=== PATIENT | female | born 1970 | race Two or more races ===

== ENCOUNTER 2016-03-28 10:36 | Emergency (ER) | payer MEDICAID ==
[~2016-03-28] VITALS: Ht 157.5 cm; Wt 74.8 kg
[~2016-03-28 10:36] MED LIST: ACET30TA PO; BUS10T PO; CITA20TA3 PO; IBUP800T24 PO; SUCR1TAB36 PO
[2016-03-28 11:06] VITALS: BP 108/57
== END 2016-03-28 11:34 | disposition home or self-care (01) ==
LOC: ER 10:45
DX: B86 Scabies (principal); F17.210 Nicotine dependence, cigarettes, uncomplicated; Z90.49 Acquired absence of other specified parts of digestive tract; Z88.6 Allergy status to analgesic agent

== ENCOUNTER 2016-08-10 23:17 | Emergency (ER) | payer MEDICAID ==
[~2016-08-10] VITALS: Ht 157.5 cm; Wt 74.8 kg
[2016-08-10] MEDS ORDERED: methylPREDNISolone SOD SUCC 125 MG/2 ML VL IV ONE (23:45)
[2016-08-10] MEDS ORDERED: diphenhdrAMINE HCL 50 MG/1 ML VL IV ONE (23:45)
[2016-08-10] MEDS ORDERED: EPINEPHrine HCL 1 MG/1 ML AMP SC ONE (23:45)
[2016-08-10 23:52] VITALS: BP 109/70
== END 2016-08-11 03:43 | disposition left against medical advice (07) ==
LOC: ER 23:17
DX: T78.40XA Allergy, unspecified, initial encounter (principal); X58.XXXA Exposure to other specified factors, initial encounter; Z53.21 Procedure and treatment not carried out due to patient leaving prior to being seen by health care provider
CPT/HCPCS: J0171; J1200; J2930

== ENCOUNTER 2017-01-10 20:32 | Emergency (ER) | payer MEDICAID ==
[~2017-01-10] VITALS: Ht 157.5 cm; Wt 72.6 kg
[2017-01-10 21:06] LABS: Urine Bilirubin Negative (Negative); Urine Blood Negative /uL (Negative); Urine Color Yellow (Yellow); Urine Glucose Normal (Normal); Urine Ketone Negative (Negative); Urine Nitrite Negative (Negative); Urine RBC 1 /hpf (0 - 4); Urine Squamous Epithelial Cell FEW /hpf (<5); Urine Urobilinogen Normal (Negative); Urine pH 5.5 (5.0-8.0)
[2017-01-10 21:42] LABS: Basophils # (auto) 0.1 uL; Basophils % (auto) 0.7 % (0.0-2.0); Eosinophils # (auto) 0.2 uL; Eosinophils % (auto) 3.3 % (0.0-7.0); Hematocrit 36.5 % (36.0-46.0); Hemoglobin 11.6 g/dL (12.2-16.2); Lymphocytes # (auto) 2.6 uL; Lymphocytes % (auto) 35.4 % (10.0-50.0); Mean Corpuscular Hemoglobin 27.3 pg (28.0-32.0); Mean Corpuscular Hgb Conc. 31.8 g/dL (32.0-36.0); Mean Corpuscular Volume 86.1 fL (80.0-100.0); Mean Platelet Volume 8.7 fL (6.9-10.8); Monocytes # (auto) 0.5 uL; Neutrophils % (auto) 53.6 % (37.0-80.0); Platelet Count (auto) 333 10^3/uL (140-450); Red Cell Distribution Width 16.1 % (11.8-14.3); White Blood Cell 7.4 10^3/uL (4.4-10.8)
[2017-01-10 22:02] LABS: BUN/Creatinine Ratio 17.2; Potassium 4.1 mmol/L (3.5-5.1)
[2017-01-10 22:04] LABS: Bilirubin, Total 0.1 mg/dL (0.2-1.0); Total Protein 8.4 g/dL (6.4-8.2)
[2017-01-10 23:14] VITALS: BP 100/56
[2017-01-10] MEDS ORDERED: IBUPROFEN 600 MG TAB PO ONE (23:45)
== END 2017-01-10 23:49 | disposition home or self-care (01) ==
LOC: ER 20:32
DX: K52.9 Noninfective gastroenteritis and colitis, unspecified (principal); M79.1 Myalgia; F17.210 Nicotine dependence, cigarettes, uncomplicated; E11.9 Type 2 diabetes mellitus without complications; Z90.49 Acquired absence of other specified parts of digestive tract; Z88.6 Allergy status to analgesic agent
CPT/HCPCS: 36415; 74176; 80053; 81001; 84702; 85025

== ENCOUNTER 2017-04-08 17:07 | Emergency (ER) | payer MEDICAID ==
[~2017-04-08] VITALS: Ht 175.3 cm; Wt 74.8 kg
[2017-04-08] MEDS ORDERED: SODIUM CHLORIDE 0.9% 1,000 ML IVB ONE (17:27)
[2017-04-08 18:02] LABS: Urine Bacteria FEW /hpf (None Seen); Urine Blood Negative /uL (Negative); Urine Mucus FEW (None Seen); Urine Specific Gravity 1.025 (1.001-1.035); Urine WBC 7 /hpf (0 - 5)
[2017-04-08 18:13] LABS: Amphetamine Screen, Urine NEGATIVE (NEGATIVE); Barbiturate Scree,Urine NEGATIVE (NEGATIVE); Benzodiazephine Screen, Urine NEGATIVE (NEGATIVE); Cannabinoid Screen, Urine NEGATIVE (NEGATIVE); Cocaine Screen, Urine NEGATIVE (NEGATIVE); Opiate Scree,Urine NEGATIVE (NEGATIVE); Phencyclidine Screen, Urine NEGATIVE (NEGATIVE)
[2017-04-08 18:59] LABS: Basophils # (auto) 0.1 uL; Eosinophils # (auto) 0.1 uL; Lymphocytes # (auto) 2.7 uL; Mean Corpuscular Hgb Conc. 31.6 g/dL (32.0-36.0); Monocytes # (auto) 0.5 uL; White Blood Cell 8.3 10^3/uL (4.4-10.8)
[2017-04-08 19:01] LABS: Basophils % (auto) 0.7 % (0.0-2.0); Eosinophils % (auto) 1.4 % (0.0-7.0); Hematocrit 34.3 % (36.0-46.0); Hemoglobin 10.8 g/dL (12.2-16.2); Lymphocytes % (auto) 32.3 % (10.0-50.0); Mean Corpuscular Volume 82.4 fL (80.0-100.0); Monocytes % (auto) 5.8 % (0.0-12.0); Neutrophils % (auto) 59.8 % (37.0-80.0); Nucleated Red Blood Cells % 0.1 %; Platelet Count (auto) 328 10^3/uL (140-450); Red Blood Cells 4.16 10^6/uL (4.0-5.20); Red Cell Distribution Width 15.9 % (11.8-14.3)
[2017-04-08 19:09] LABS: Acetaminophen < 2.0 ug/mL (10-30); Salicylate 1.9 mg/dL (2.8-20.0)
[2017-04-08 19:19] LABS: Albumin 3.9 g/dL (3.4-5.0); BUN/Creatinine Ratio 18.5; Bilirubin, Total 0.2 mg/dL (0.2-1.0); Calcium 8.1 mg/dL (8.5-10.1); Potassium 3.8 mmol/L (3.5-5.1); Total Protein 8.4 g/dL (6.4-8.2)
[2017-04-08] MEDS ORDERED: cefTRIAXone 1GM/10ml IVPUSH 10 ML IV ONE (19:30)
[2017-04-08] MEDS ORDERED: KETOROLAC TROMETH 30 MG/ML 1ML VIAL IV ONE (19:30)
[2017-04-08] MEDS: THIAMINE INJ 100 MG, MULTIPLE VITAMIN 10 ML, FOLIC ACID 1 MG, MAGNESIUM SULF SDV 50% 8 ... IV SCH ×5 (20:00)
[2017-04-08] MEDS ORDERED: PANTOPRAZOLE 40 MG/10 ML VIAL IV ONE (20:00)
[2017-04-08] MEDS ORDERED: MVI in SODIUM CHLORIDE 0.9% 1,010 ML ONE (20:02)
[2017-04-08] MEDS ORDERED: FAMOTIDINE (10MG/ML) 2ML VL IV ONE (21:15)
[2017-04-08] MEDS ORDERED: ACETAMINOPHEN 325 MG TAB PO ONE (23:00)
[2017-04-09] MEDS ORDERED: LORazepam 2MG/ML-1ML VIAL IV ONE (03:45)
[2017-04-09] MEDS ORDERED: FLUoxetine HCL 20 MG CAP PO ONE (10:00)
[2017-04-09] MEDS ORDERED: THIAMINE HCL 100 MG TAB PO ONE (10:00)
[2017-04-09] MEDS: FOLIC ACID 1 MG TAB PO SCH (10:06)
[2017-04-09] MEDS: THIAMINE HCL 100 MG TAB PO SCH (10:06)
[2017-04-09] MEDS: FLUoxetine HCL 20 MG CAP PO SCH (10:06)
[2017-04-09] MEDS ORDERED: NEOMYCIN-BACITRACIN-POLYM UNITDOSE PKG TOP OINT TOP ONE (19:45)
[2017-04-09] MEDS ORDERED: QUEtiapine FUMARATE 25 MG TAB PO SCH (22:00)
[2017-04-09] MEDS ORDERED: ACETAMINOPHEN 325 MG TAB PO ONE (22:08)
[2017-04-09] MEDS: QUEtiapine FUMARATE 25 MG TAB PO SCH (22:13)
[2017-04-09] MEDS ORDERED: ACETAMINOPHEN 325 MG TAB PO PRN (22:15)
[2017-04-10] MEDS: THIAMINE INJ 100 MG, MULTIPLE VITAMIN 10 ML, FOLIC ACID 1 MG, MAGNESIUM SULF SDV 50% 8 ... IV SCH ×5 (12:00)
[2017-04-10] MEDS: THIAMINE HCL 100 MG TAB PO SCH (12:15)
[2017-04-10] MEDS: FLUoxetine HCL 20 MG CAP PO SCH (12:15)
[2017-04-10] MEDS: FOLIC ACID 1 MG TAB PO SCH (12:15)
[2017-04-10] MEDS: QUEtiapine FUMARATE 25 MG TAB PO SCH (22:09)
[2017-04-11 07:38] VITALS: BP 124/62
[2017-04-11] MEDS: FOLIC ACID 1 MG TAB PO SCH (10:00)
[2017-04-11] MEDS: THIAMINE HCL 100 MG TAB PO SCH (10:00)
[2017-04-11] MEDS: FLUoxetine HCL 20 MG CAP PO SCH (10:00)
[2017-04-11] MEDS: QUEtiapine FUMARATE 25 MG TAB PO SCH (22:00)
== END 2017-04-12 10:42 | disposition home or self-care (01) ==
LOC: ER 17:07 → EDBD 17:07 → ER 04-12 10:42
DX: T14.91XA Suicide attempt, initial encounter (principal); F10.120 Alcohol abuse with intoxication, uncomplicated; N39.0 Urinary tract infection, site not specified; F31.9 Bipolar disorder, unspecified; F17.210 Nicotine dependence, cigarettes, uncomplicated; Z90.49 Acquired absence of other specified parts of digestive tract; X58.XXXA Exposure to other specified factors, initial encounter
CPT/HCPCS: 36415; 71045; 80053; 80307; 80320; 80329; 81001; 83735; 85025; 93005; 94761; 96365; 96366; 96375; 99285; C9113; J2060; J3411; J3475; J3490; J7030

== ENCOUNTER 2018-01-05 17:34 | Emergency (ER) | payer MEDICAID ==
[~2018-01-05] VITALS: Ht 157.5 cm; Wt 74.8 kg
[2018-01-05 17:47] VITALS: BP 117/68
== END 2018-01-05 20:05 | disposition left against medical advice (07) ==
LOC: ER 17:36
DX: F41.9 Anxiety disorder, unspecified (principal); Z53.21 Procedure and treatment not carried out due to patient leaving prior to being seen by health care provider

== ENCOUNTER 2018-07-26 12:07 | Emergency (ER) | payer MEDICAID ==
[~2018-07-26] VITALS: Ht 157.5 cm; Wt 77.1 kg
[2018-07-26] MEDS ORDERED: LORazepam 0.5 MG TAB PO ONE (13:30)
[2018-07-26 14:12] LABS: Basophils # (auto) 0 uL; Basophils % (auto) 0.6 % (0.0-2.0); Eosinophils # (auto) 0.2 uL; Eosinophils % (auto) 2.8 % (0.0-7.0); Hematocrit 34.7 % (36.0-46.0); Hemoglobin 11.2 g/dL (12.2-16.2); Lymphocytes # (auto) 2.5 uL; Mean Corpuscular Hemoglobin 28.9 pg (28.0-32.0); Mean Corpuscular Hgb Conc. 32.4 g/dL (32.0-36.0); Mean Corpuscular Volume 89.3 fL (80.0-100.0); Monocytes # (auto) 0.5 uL; Neutrophils # (auto) 2.8 uL; Neutrophils % (auto) 46.6 % (37.0-80.0); Platelet Count (auto) 279 10^3/uL (140-450); Red Blood Cells 3.89 10^6/uL (4.0-5.20); Red Cell Distribution Width 14.6 % (11.8-14.3); White Blood Cell 6.1 10^3/uL (4.4-10.8)
[2018-07-26 14:36] LABS: Albumin 3.6 g/dL (3.4-5.0); Anion Gap 7 (5-15); Blood Urea Nitrogen 11 mg/dL (7-18); Calcium 8.5 mg/dL (8.5-10.1); Carbon Dioxide 24 mmol/L (21-32); Chloride 108 mmol/L (98-107); Glucose 100 mg/dL (74-106); Sodium 139 mmol/L (136-145)
[2018-07-26 14:37] VITALS: BP 123/54
[2018-07-26 14:42] LABS: Alanine Aminotransferase 18 U/L (13-56); Alkaline Phosphatase 101 U/L (45-117); Aspartate Aminotransferase 12 U/L (15-37); BUN/Creatinine Ratio 18.3; Bilirubin, Total 0.2 mg/dL (0.2-1.0); GFR African American 137 mL/min; GFR Non-African American 113 mL/min; Total Protein 7.7 g/dL (6.4-8.2)
[2018-07-26 15:36] LABS: Urine Bacteria FEW /hpf (None Seen); Urine Blood Negative /uL (Negative); Urine Specific Gravity 1.005 (1.001-1.035); Urine WBC 1 /hpf (0 - 5)
== END 2018-07-26 16:28 | disposition home or self-care (01) ==
LOC: ER 12:07
DX: R07.89 Other chest pain (principal); F41.9 Anxiety disorder, unspecified; F17.210 Nicotine dependence, cigarettes, uncomplicated; Z88.5 Allergy status to narcotic agent; Z79.899 Other long term (current) drug therapy; Z90.49 Acquired absence of other specified parts of digestive tract
CPT/HCPCS: 36415; 80053; 81001; 84484; 85025; 93005

== ENCOUNTER 2018-12-08 11:01 | Emergency (ER) | payer MEDICAID ==
[~2018-12-08] VITALS: Ht 157.5 cm; Wt 80.7 kg
[2018-12-08 11:31] LABS: Eosinophils # (auto) 0.3 uL; Monocytes # (auto) 0.4 uL; Neutrophils # (auto) 2.6 uL; White Blood Cell 5.5 10^3/uL (4.4-10.8)
[2018-12-08 11:32] LABS: Basophils # (auto) 0 uL; Basophils % (auto) 0.8 % (0.0-2.0); Eosinophils % (auto) 5.2 % (0.0-7.0); Hematocrit 36.1 % (36.0-46.0); Hemoglobin 11.5 g/dL (12.2-16.2); Lymphocytes # (auto) 2.2 uL; Lymphocytes % (auto) 39.2 % (10.0-50.0); Mean Corpuscular Hemoglobin 26.7 pg (28.0-32.0); Mean Corpuscular Hgb Conc. 31.9 g/dL (32.0-36.0); Mean Corpuscular Volume 83.7 fL (80.0-100.0); Monocytes % (auto) 7.3 % (0.0-12.0); Neutrophils % (auto) 47.5 % (37.0-80.0); Platelet Count (auto) 283 10^3/uL (140-450); Red Blood Cells 4.31 10^6/uL (4.0-5.20); Red Cell Distribution Width 16.9 % (11.8-14.3)
[2018-12-08 11:44] LABS: Urine Bacteria FEW /hpf (None Seen); Urine Blood Negative /uL (Negative); Urine Mucus FEW (None Seen); Urine WBC 26 /hpf (0 - 5)
[2018-12-08 11:50] LABS: Albumin 3.7 g/dL (3.4-5.0); Calcium 8.8 mg/dL (8.5-10.1)
[2018-12-08 11:53] LABS: Bilirubin, Total 0.3 mg/dL (0.2-1.0)
[2018-12-08] MEDS ORDERED: SODIUM CHLORIDE 0.9% 500 ML IVB ONE (16:40)
[2018-12-08] MEDS ORDERED: SODIUM CHLORIDE 0.9% 1,000 ML IV ONE (16:40)
[2018-12-08] MEDS ORDERED: PROMETHAZINE HCL 25 MG/ML 1ML IV PRN (16:45)
[2018-12-08] MEDS ORDERED: KETOROLAC TROMETH 30 MG/ML 1ML VIAL IV ONE (16:45)
[2018-12-08] MEDS ORDERED: cefTRIAXone 1GM/50ML D5W 50 ML IV ONE (16:45)
[2018-12-08 18:45] VITALS: BP 106/50
== END 2018-12-08 19:05 | disposition home or self-care (01) ==
LOC: ER 11:07
DX: N39.0 Urinary tract infection, site not specified (principal); M46.1 Sacroiliitis, not elsewhere classified; F17.210 Nicotine dependence, cigarettes, uncomplicated; Z90.49 Acquired absence of other specified parts of digestive tract; Z88.5 Allergy status to narcotic agent; Z79.1 Long term (current) use of non-steroidal anti-inflammatories (NSAID); Z79.899 Other long term (current) drug therapy
CPT/HCPCS: 36415; 74176; 80053; 81001; 85025; 96361; 96365; 99284; J0696; J1885; J7030; J7040

== ENCOUNTER 2019-02-25 14:38 | Emergency (ER) | payer MEDICAID ==
[~2019-02-25] VITALS: Ht 157.5 cm; Wt 76.2 kg
[2019-02-25 15:01] VITALS: BP 125/73
[2019-02-25 15:42] LABS: Basophils # (auto) 0 uL; Basophils % (auto) 0.5 % (0.0-2.0); Eosinophils # (auto) 0.3 uL; Eosinophils % (auto) 5.2 % (0.0-7.0); Hematocrit 36.7 % (36.0-46.0); Hemoglobin 11.7 g/dL (12.2-16.2); Lymphocytes # (auto) 2.3 uL; Lymphocytes % (auto) 40.1 % (10.0-50.0); Mean Corpuscular Hemoglobin 28.4 pg (28.0-32.0); Mean Corpuscular Volume 88.7 fL (80.0-100.0); Monocytes # (auto) 0.4 uL; Monocytes % (auto) 6.8 % (0.0-12.0); Neutrophils # (auto) 2.7 uL; Neutrophils % (auto) 47.4 % (37.0-80.0); Nucleated Red Blood Cells % 0.1 %; Platelet Count (auto) 254 10^3/uL (140-450); Red Blood Cells 4.14 10^6/uL (4.0-5.20); Red Cell Distribution Width 17.8 % (11.8-14.3); White Blood Cell 5.7 10^3/uL (4.4-10.8)
[2019-02-25 16:02] LABS: Alanine Aminotransferase 21 U/L (13-56); Albumin 3.6 g/dL (3.4-5.0); Anion Gap 7 (5-15); Aspartate Aminotransferase 21 U/L (15-37); Blood Urea Nitrogen 12 mg/dL (7-18); Calcium 8.6 mg/dL (8.5-10.1); Carbon Dioxide 26 mmol/L (21-32); Chloride 107 mmol/L (98-107); GFR African American 136 mL/min; GFR Non-African American 112 mL/min; Glucose 87 mg/dL (74-106); Potassium 4.2 mmol/L (3.5-5.1); Sodium 140 mmol/L (136-145)
[2019-02-25 16:07] LABS: Alkaline Phosphatase 117 U/L (45-117); Bilirubin, Total 0.2 mg/dL (0.2-1.0); Total Protein 8.2 g/dL (6.4-8.2)
== END 2019-02-25 18:34 | disposition home or self-care (01) ==
LOC: ER 14:58
DX: R07.89 Other chest pain (principal); M54.2 Cervicalgia; M79.641 Pain in right hand; E11.9 Type 2 diabetes mellitus without complications; E07.9 Disorder of thyroid, unspecified; Z88.5 Allergy status to narcotic agent
CPT/HCPCS: 36415; 80053; 84484; 85025; 93005

== ENCOUNTER 2019-09-02 10:51 | Emergency (ER) | payer MEDICAID ==
[~2019-09-02] VITALS: Ht 157.5 cm; Wt 76.7 kg
[2019-09-02 11:37] LABS: Basophils # (auto) 0 10 ^3/uL (0-0.2); Hemoglobin 10.7 g/dL (12.2-16.2); Monocytes # (auto) 0.3 10 ^3/uL (0-1.3); Neutrophils # (auto) 2.8 10 ^3/uL (1.6-8.6)
[2019-09-02 11:39] LABS: Basophils % (auto) 0.9 % (0.0-2.0); Eosinophils # (auto) 0.3 10 ^3/uL (0-0.8); Eosinophils % (auto) 6.7 % (0.0-7.0); Hematocrit 34.1 % (36.0-46.0); Lymphocytes # (auto) 1.5 10 ^3/uL (0.4-5.4); Lymphocytes % (auto) 30.5 % (10.0-50.0); Mean Corpuscular Hgb Conc. 31.3 g/dL (32.0-36.0); Mean Corpuscular Volume 83.1 fL (80.0-100.0); Monocytes % (auto) 5.8 % (0.0-12.0); Neutrophils % (auto) 56.1 % (37.0-80.0); Platelet Count (auto) 296 10^3/uL (140-450); Red Cell Distribution Width 15.9 % (11.8-14.3)
[2019-09-02 11:46] LABS: Albumin 3.6 g/dL (3.4-5.0); Anion Gap 7 (5-15); Blood Urea Nitrogen 13 mg/dL (7-18); Calcium 8.6 mg/dL (8.5-10.1); Carbon Dioxide 24 mmol/L (21-32); Chloride 107 mmol/L (98-107); Glucose 107 mg/dL (74-106); Potassium 3.9 mmol/L (3.5-5.1); Sodium 138 mmol/L (136-145)
[2019-09-02 11:54] LABS: Alanine Aminotransferase 28 U/L (13-56); Alkaline Phosphatase 115 U/L (45-117); Aspartate Aminotransferase 18 U/L (15-37); BUN/Creatinine Ratio 19.1; Bilirubin, Total 0.3 mg/dL (0.2-1.0); GFR African American 118 mL/min; GFR Non-African American 97 mL/min; Total Protein 7.8 g/dL (6.4-8.2)
[2019-09-02] MEDS ORDERED: KETOROLAC TROMETH 30 MG/ML 1ML VIAL IV ONE (12:00)
[2019-09-02 12:02] LABS: Urine Bacteria FEW /hpf (None Seen); Urine Blood Negative /uL (Negative); Urine Specific Gravity 1.009 (1.001-1.035); Urine WBC 12 /hpf (0 - 5)
[2019-09-02 12:44] VITALS: BP 101/50
== END 2019-09-02 12:52 | disposition home or self-care (01) ==
LOC: ER 10:51
DX: S43.421A Sprain of right rotator cuff capsule, initial encounter (principal); R07.89 Other chest pain; R55 Syncope and collapse; R11.2 Nausea with vomiting, unspecified; Z88.6 Allergy status to analgesic agent; Z88.8 Allergy status to other drugs, medicaments and biological substances; Z90.49 Acquired absence of other specified parts of digestive tract; X58.XXXA Exposure to other specified factors, initial encounter; Y93.89 Activity, other specified; Y92.89 Other specified places as the place of occurrence of the external cause; Y99.8 Other external cause status
CPT/HCPCS: 36415; 71046; 73030; 80053; 81001; 84484; 85025; 93005; 96374; 99285; J1885

== ENCOUNTER → 2019-09-23 | Emergency (ER) | payer MEDICAID ==
[~2019-09-23] VITALS: Ht 157.5 cm; Wt 81.6 kg
[~2019-09-23] MED LIST changes: +ACETAMINOPHEN 325 MG TAB PO ONE; +SODIUM CHLORIDE 0.9% 1,000 ML IV ONE; +SODIUM CHLORIDE 0.9% 1,000 ML IVB ONE; +THIAMINE 100mg/ml INJ (200mg/2ml VIAL) IV ONE
[2019-09-23 15:50] LABS: Urine Bacteria MANY /hpf (None Seen); Urine Blood Negative /uL (Negative); Urine Mucus FEW (None Seen); Urine Specific Gravity 1.008 (1.001-1.035); Urine WBC 9 /hpf (0 - 5)
[2019-09-23 15:53] LABS: Amphetamine Screen, Urine NEGATIVE (NEGATIVE); Barbiturate Scree,Urine NEGATIVE (NEGATIVE); Benzodiazephine Screen, Urine NEGATIVE (NEGATIVE); Cannabinoid Screen, Urine NEGATIVE (NEGATIVE); Cocaine Screen, Urine NEGATIVE (NEGATIVE); Opiate Scree,Urine NEGATIVE (NEGATIVE); Phencyclidine Screen, Urine NEGATIVE (NEGATIVE)
[2019-09-23 16:56] LABS: Basophils # (auto) 0 10 ^3/uL (0-0.2); Eosinophils # (auto) 0.1 10 ^3/uL (0-0.8); Monocytes # (auto) 0.3 10 ^3/uL (0-1.3); Neutrophils # (auto) 4.8 10 ^3/uL (1.6-8.6); Red Cell Distribution Width 17.1 % (11.8-14.3)
[2019-09-23 16:58] LABS: Basophils % (auto) 0.6 % (0.0-2.0); Eosinophils % (auto) 1.4 % (0.0-7.0); Hematocrit 36.3 % (36.0-46.0); Hemoglobin 11.2 g/dL (12.2-16.2); Lymphocytes % (auto) 27.7 % (10.0-50.0); Mean Corpuscular Hemoglobin 25.8 pg (28.0-32.0); Mean Corpuscular Hgb Conc. 30.9 g/dL (32.0-36.0); Mean Corpuscular Volume 83.5 fL (80.0-100.0); Monocytes % (auto) 4.1 % (0.0-12.0); Neutrophils % (auto) 66.2 % (37.0-80.0); Platelet Count (auto) 382 10^3/uL (140-450); Red Blood Cells 4.35 10^6/uL (4.0-5.20); White Blood Cell 7.2 10^3/uL (4.4-10.8)
[2019-09-23 17:15] LABS: Albumin 3.7 g/dL (3.4-5.0); Calcium 8.8 mg/dL (8.5-10.1); Potassium 3.6 mmol/L (3.5-5.1)
[2019-09-23 17:19] LABS: BUN/Creatinine Ratio 16.7; Bilirubin, Total 0.2 mg/dL (0.2-1.0); Salicylate 4.3 mg/dL (2.8-20.0); Total Protein 8.3 g/dL (6.4-8.2)
[2019-09-23 17:24] LABS: Acetaminophen < 2.0 ug/mL (10-30)
[2019-09-24 08:52] VITALS: BP 114/66
== END | disposition home or self-care (01) ==
LOC: EDBD 13:50 → EDUNIT# 13:50 → ER 13:50
DX: R45.851 Suicidal ideations (principal); F41.9 Anxiety disorder, unspecified; F19.10 Other psychoactive substance abuse, uncomplicated; Z72.89 Other problems related to lifestyle
CPT/HCPCS: 36415; 80053; 80307; 80320; 80329; 81001; 85025; 96374

== ENCOUNTER 2019-10-01 10:27 | Emergency (ER) | payer MEDICAID ==
[~2019-10-01] VITALS: Ht 157.5 cm; Wt 74.8 kg
[~2019-10-01 10:27] MED LIST changes: -ACETAMINOPHEN 325 MG TAB PO ONE; -SODIUM CHLORIDE 0.9% 1,000 ML IV ONE; -SODIUM CHLORIDE 0.9% 1,000 ML IVB ONE; -THIAMINE 100mg/ml INJ (200mg/2ml VIAL) IV ONE
[2019-10-01 10:43] VITALS: BP 116/85
[2019-10-01 11:44] LABS: Eosinophils # (auto) 0.3 10 ^3/uL (0-0.8); Hemoglobin 11.3 g/dL (12.2-16.2); Lymphocytes # (auto) 2.1 10 ^3/uL (0.4-5.4); Monocytes # (auto) 0.4 10 ^3/uL (0-1.3); Neutrophils # (auto) 3.8 10 ^3/uL (1.6-8.6); Neutrophils % (auto) 57.5 % (37.0-80.0); Nucleated Red Blood Cells % 0.1 %; White Blood Cell 6.6 10^3/uL (4.4-10.8)
[2019-10-01 11:46] LABS: Basophils # (auto) 0 10 ^3/uL (0-0.2); Basophils % (auto) 0.7 % (0.0-2.0); Eosinophils % (auto) 4.3 % (0.0-7.0); Hematocrit 36.8 % (36.0-46.0); Lymphocytes % (auto) 31.5 % (10.0-50.0); Mean Corpuscular Hemoglobin 26.2 pg (28.0-32.0); Mean Corpuscular Hgb Conc. 30.7 g/dL (32.0-36.0); Mean Corpuscular Volume 85.2 fL (80.0-100.0); Platelet Count (auto) 289 10^3/uL (140-450); Red Blood Cells 4.32 10^6/uL (4.0-5.20); Red Cell Distribution Width 17.3 % (11.8-14.3)
[2019-10-01 12:01] LABS: Chloride 103 mmol/L (98-107); Sodium 134 mmol/L (136-145)
[2019-10-01 12:12] LABS: Alanine Aminotransferase 19 U/L (13-56); Albumin 3.6 g/dL (3.4-5.0); Alkaline Phosphatase 98 U/L (45-117); Anion Gap 5 (5-15); Aspartate Aminotransferase 17 U/L (15-37); Bilirubin, Total 0.2 mg/dL (0.2-1.0); Blood Urea Nitrogen 11 mg/dL (7-18); Calcium 8.8 mg/dL (8.5-10.1); Carbon Dioxide 26 mmol/L (21-32); GFR African American 134 mL/min; GFR Non-African American 110 mL/min; Glucose 94 mg/dL (74-106); Total Protein 8.3 g/dL (6.4-8.2)
== END 2019-10-01 13:27 | disposition left against medical advice (07) ==
LOC: EDBD 10:27 → ER 10:27
DX: S09.90XA Unspecified injury of head, initial encounter (principal); R55 Syncope and collapse; M54.2 Cervicalgia; X58.XXXA Exposure to other specified factors, initial encounter; Y93.89 Activity, other specified; Y92.89 Other specified places as the place of occurrence of the external cause; Y99.8 Other external cause status
CPT/HCPCS: 36415; 80053; 84484; 85025; 93005

== ENCOUNTER 2019-12-31 12:24 | Emergency (ER) | payer MEDICAID ==
[~2019-12-31] VITALS: Ht 157.5 cm; Wt 88.5 kg
[2019-12-31 12:45] VITALS: BP 100/53
== END 2019-12-31 14:58 | disposition home or self-care (01) ==
LOC: ER 12:24
DX: J20.8 Acute bronchitis due to other specified organisms (principal); Z20.828 Contact with and (suspected) exposure to other viral communicable diseases
CPT/HCPCS: 36415; 71045; 87426

== ENCOUNTER 2021-02-26 10:00 | Emergency (ER) | payer MEDICAID ==
[~2021-02-26] VITALS: Ht 157.5 cm; Wt 88.5 kg
[~2021-02-26 10:00] MED LIST changes: -IBUP800T24 PO; +IBUP800T27 PO
[2021-02-26] MEDS ORDERED: HYDROcodone-ACET 5/325MG TAB ONE (10:04)
[2021-02-26] MEDS ORDERED: HYDROcodone-ACET 5/325MG TAB PO ONE (10:15)
[2021-02-26 11:23] LABS: Basophils # (auto) 0.1 10 ^3/uL (0-0.2); Eosinophils # (auto) 0.2 10 ^3/uL (0-0.8); Eosinophils % (auto) 2.5 % (0.0-7.0); Hematocrit 41.4 % (36.0-46.0); Hemoglobin 13.3 g/dL (12.2-16.2); Lymphocytes # (auto) 2.1 10 ^3/uL (0.4-5.4); Lymphocytes % (auto) 31.1 % (10.0-50.0); Mean Corpuscular Hemoglobin 28.9 pg (28.0-32.0); Mean Corpuscular Hgb Conc. 32.1 g/dL (32.0-36.0); Mean Corpuscular Volume 90.2 fL (80.0-100.0); Monocytes # (auto) 0.4 10 ^3/uL (0-1.3); Monocytes % (auto) 5.9 % (0.0-12.0); Neutrophils # (auto) 4.1 10 ^3/uL (1.6-8.6); Neutrophils % (auto) 59.5 % (37.0-80.0); Nucleated Red Blood Cells % 0.1 %; Red Blood Cells 4.59 10^6/uL (4.0-5.20); Red Cell Distribution Width 17.5 % (11.8-14.3); White Blood Cell 6.8 10^3/uL (4.4-10.8)
[2021-02-26 11:32] LABS: Albumin 3.8 g/dL (3.4-5.0); Calcium 8.6 mg/dL (8.5-10.1); Potassium 4.6 mmol/L (3.5-5.1)
[2021-02-26 11:38] LABS: BUN/Creatinine Ratio 16.1; Bilirubin, Total 0.3 mg/dL (0.2-1.0); Total Protein 8.1 g/dL (6.4-8.2)
[2021-02-26 14:11] VITALS: BP 100/60
== END 2021-02-26 14:17 | disposition home or self-care (01) ==
LOC: ER 10:00
DX: R10.2 Pelvic and perineal pain (principal); E11.9 Type 2 diabetes mellitus without complications; E03.9 Hypothyroidism, unspecified; F17.210 Nicotine dependence, cigarettes, uncomplicated; Z90.49 Acquired absence of other specified parts of digestive tract; Z79.1 Long term (current) use of non-steroidal anti-inflammatories (NSAID); Z79.899 Other long term (current) drug therapy; Z88.5 Allergy status to narcotic agent
CPT/HCPCS: 36415; 74176; 80053; 85025

== ENCOUNTER 2021-08-28 11:09 | Emergency (ER) | payer MEDICAID ==
[~2021-08-28] VITALS: Ht 157.5 cm; Wt 86.2 kg
[2021-08-28 12:11] LABS: Basophils # (auto) 0.3 10 ^3/uL (0-0.2); Basophils % (auto) 4.6 % (0.0-2.0); Eosinophils # (auto) 0.2 10 ^3/uL (0-0.8); Eosinophils % (auto) 3.8 % (0.0-7.0); Hematocrit 36.6 % (36.0-46.0); Hemoglobin 11.9 g/dL (12.2-16.2); Lymphocytes # (auto) 1.6 10 ^3/uL (0.4-5.4); Mean Corpuscular Hemoglobin 29.1 pg (28.0-32.0); Mean Corpuscular Hgb Conc. 32.4 g/dL (32.0-36.0); Monocytes # (auto) 0.3 10 ^3/uL (0-1.3); Monocytes % (auto) 5.7 % (0.0-12.0); Neutrophils % (auto) 55.9 % (37.0-80.0); Nucleated Red Blood Cells % 0.1 %; Red Blood Cells 4.07 10^6/uL (4.0-5.20); Red Cell Distribution Width 15.8 % (11.8-14.3); White Blood Cell 5.4 10^3/uL (4.4-10.8)
[2021-08-28 12:28] LABS: Albumin 3.8 g/dL (3.4-5.0); Calcium 9.1 mg/dL (8.5-10.1); Potassium 4.5 mmol/L (3.5-5.1)
[2021-08-28 12:31] LABS: BUN/Creatinine Ratio 17.5; Bilirubin, Total 0.3 mg/dL (0.2-1.0); Total Protein 8.1 g/dL (6.4-8.2)
[2021-08-28] MEDS ORDERED: ONDANSETRON ODT 4 MG TAB PO ONE (12:45)
[2021-08-28 13:02] LABS: Urine Bacteria FEW /hpf (None Seen); Urine Blood Negative /uL (Negative); Urine Specific Gravity 1.016 (1.001-1.035); Urine WBC 90 /hpf (0 - 5)
[2021-08-28] MEDS ORDERED: ONDA-144 PO (14:20)
[2021-08-28] MEDS ORDERED: DOCU-94 PO (14:20)
[2021-08-28] MEDS ORDERED: LEVO500T31 PO (14:20)
[2021-08-28 14:36] VITALS: BP 120/67
== END 2021-08-28 14:35 | disposition home or self-care (01) ==
LOC: ER 11:09
DX: N39.0 Urinary tract infection, site not specified (principal); K59.00 Constipation, unspecified; T85.898A Other specified complication of other internal prosthetic devices, implants and grafts, initial encounter; E11.9 Type 2 diabetes mellitus without complications; F17.210 Nicotine dependence, cigarettes, uncomplicated; Z98.51 Tubal ligation status; Z90.49 Acquired absence of other specified parts of digestive tract
CPT/HCPCS: 36415; 74176; 80053; 81001; 83690; 84484; 85025; 93005; 99285; Q0162

== ENCOUNTER 2021-10-16 21:51 | Emergency (ER) | payer MEDICAID ==
[~2021-10-16] VITALS: Ht 162.6 cm; Wt 82.0 kg
[~2021-10-16 21:51] MED LIST changes: +DOCU-94 PO; +LEVO500T31 PO; +ONDA-144 PO
[2021-10-17] MEDS ORDERED: MORPHINE SULFATE 4 MG/ML SYR/VIAL IV ONE (02:15)
[2021-10-17] MEDS ORDERED: MORPHINE SULFATE 4 MG/ML SYR/VIAL IM ONE ×2 (02:30→03:15)
[2021-10-17 04:09] VITALS: BP 114/62
== END 2021-10-17 04:19 | disposition home or self-care (01) ==
LOC: EDBD 21:51 → ER 21:51
DX: S82.251A Displaced comminuted fracture of shaft of right tibia, initial encounter for closed fracture (principal); E11.9 Type 2 diabetes mellitus without complications; E03.9 Hypothyroidism, unspecified; F17.210 Nicotine dependence, cigarettes, uncomplicated; Z90.49 Acquired absence of other specified parts of digestive tract; Z79.1 Long term (current) use of non-steroidal anti-inflammatories (NSAID); Z79.2 Long term (current) use of antibiotics; Z79.899 Other long term (current) drug therapy; Z88.5 Allergy status to narcotic agent; Z91.013 Allergy to seafood; V89.2XXA Person injured in unspecified motor-vehicle accident, traffic, initial encounter; Y93.89 Activity, other specified; Y92.89 Other specified places as the place of occurrence of the external cause; Y99.8 Other external cause status
CPT/HCPCS: 29515; 73600; 96372; 99285; J2270

== ENCOUNTER 2021-10-17 17:45 | Emergency (ER) | payer MEDICAID ==
[~2021-10-17] VITALS: Ht 172.7 cm; Wt 72.3 kg
[2021-10-17] MEDS ORDERED: MORPHINE SULFATE 4 MG/ML SYR/VIAL IV ONE (19:00)
[2021-10-17 19:22] LABS: Basophils # (auto) 0 10 ^3/uL (0-0.2); Basophils % (auto) 0.4 % (0.0-2.0); Eosinophils # (auto) 0.1 10 ^3/uL (0-0.8); Hemoglobin 9.9 g/dL (12.2-16.2); Monocytes # (auto) 0.5 10 ^3/uL (0-1.3)
[2021-10-17 19:24] LABS: Hematocrit 31.5 % (36.0-46.0); Lymphocytes # (auto) 1.5 10 ^3/uL (0.4-5.4); Lymphocytes % (auto) 21.9 % (10.0-50.0); Mean Corpuscular Hgb Conc. 31.6 g/dL (32.0-36.0); Mean Corpuscular Volume 85.5 fL (80.0-100.0); Monocytes % (auto) 6.6 % (0.0-12.0); Neutrophils # (auto) 4.9 10 ^3/uL (1.6-8.6); Neutrophils % (auto) 70.1 % (37.0-80.0); Red Blood Cells 3.68 10^6/uL (4.0-5.20); Red Cell Distribution Width 15.4 % (11.8-14.3)
[2021-10-17 19:51] LABS: Alanine Aminotransferase 63 U/L (13-56); Albumin 3.3 g/dL (3.4-5.0); Anion Gap 9 (5-15); Aspartate Aminotransferase 101 U/L (15-37); BUN/Creatinine Ratio 14.6; Blood Alcohol < 3.0 mg/dL (0-5); Blood Urea Nitrogen 7 mg/dL (7-18); Calcium 7.9 mg/dL (8.5-10.1); Carbon Dioxide 25 mmol/L (21-32); Chloride 103 mmol/L (98-107); GFR African American 175 mL/min; GFR Non-African American 144 mL/min; Glucose 122 mg/dL (74-106); Magnesium 1.7 mg/dL (1.6-2.6); Potassium 3.7 mmol/L (3.5-5.1); Salicylate 2.3 mg/dL (2.8-20.0); Sodium 137 mmol/L (136-145)
[2021-10-17 19:54] LABS: Alkaline Phosphatase 212 U/L (45-117); Bilirubin, Total 0.5 mg/dL (0.2-1.0)
[2021-10-17 19:55] LABS: Acetaminophen < 2.0 ug/mL (10-30)
[2021-10-17 20:18] LABS: Urine Bacteria FEW /hpf (None Seen); Urine Blood Negative /uL (Negative); Urine Specific Gravity 1.013 (1.001-1.035); Urine WBC 1 /hpf (0 - 5)
[2021-10-17 20:33] LABS: Alcohol, Urine < 3.0 mg/dL (0-10); Amphetamine Screen, Urine NEGATIVE (NEGATIVE); Barbiturate Scree,Urine NEGATIVE (NEGATIVE); Benzodiazephine Screen, Urine NEGATIVE (NEGATIVE); Cannabinoid Screen, Urine NEGATIVE (NEGATIVE); Cocaine Screen, Urine NEGATIVE (NEGATIVE); Opiate Scree,Urine NEGATIVE (NEGATIVE); Phencyclidine Screen, Urine NEGATIVE (NEGATIVE)
[2021-10-18] MEDS ORDERED: MORPHINE SULFATE 4 MG/ML SYR/VIAL IV ONE (01:00)
[2021-10-18] MEDS ORDERED: IBUPROFEN 800 MG TAB PO ONE (17:00)
[2021-10-18] MEDS ORDERED: MORPHINE SULFATE INJ 2 MG/ml SYRG IM ONE (22:15)
[2021-10-18 22:52] VITALS: BP 102/70
== END 2021-10-19 10:35 | disposition left against medical advice (07) ==
LOC: ER 17:45 → EDBD 17:45 → ER 10-19 10:06
DX: S82.301D Unspecified fracture of lower end of right tibia, subsequent encounter for closed fracture with routine healing (principal); R45.851 Suicidal ideations; F10.10 Alcohol abuse, uncomplicated; F41.9 Anxiety disorder, unspecified; F32.9 Major depressive disorder, single episode, unspecified; E11.9 Type 2 diabetes mellitus without complications; F17.210 Nicotine dependence, cigarettes, uncomplicated; Z20.822 Contact with and (suspected) exposure to COVID-19; Z88.5 Allergy status to narcotic agent; Y90.9 Presence of alcohol in blood, level not specified; V89.2XXD Person injured in unspecified motor-vehicle accident, traffic, subsequent encounter
CPT/HCPCS: 29125; 36415; 80053; 80307; 80320; 80329; 81001; 81025; 83735; 85025; 87426; 93005; 96372; 96374; 96376; 99285; J2270

== ENCOUNTER 2023-03-27 10:42 | Emergency (ER) | payer MEDICAID ==
[~2023-03-27] VITALS: Ht 157.5 cm; Wt 88.1 kg
[~2023-03-27 10:42] MED LIST changes: +IBUP-1456 PO; -IBUP800T27 PO
[2023-03-27] MEDS ORDERED: LORazepam 2MG/ML-1ML VIAL IV ONE (10:45)
[2023-03-27] MEDS ORDERED: HYDROcodone-ACET 5/325MG TAB PO ONE (16:00)
[2023-03-28] MEDS ORDERED: HYDROcodone-ACET 5/325MG TAB PO ONE ×2 (00:30→16:00)
[2023-03-28] MEDS ORDERED: KETOROLAC TROMETH 60MG/2ML VIAL IM ONE (03:30)
[2023-03-28 06:25] VITALS: PULSE 90; RESP 20; O2SAT 99
[2023-03-28 07:20] VITALS: PULSE 75; RESP 16; O2SAT 96
[2023-03-28] MEDS ORDERED: ACETAMINOPHEN 325 MG TAB PO ONE (10:45)
[2023-03-28 11:28] LABS: Amphetamine Screen, Urine Neg (NEGATIVE); Barbiturate Scree,Urine Neg (NEGATIVE); Benzodiazephine Screen, Urine Pos (NEGATIVE); Cocaine Screen, Urine Pos (NEGATIVE); Opiate Scree,Urine Pos (NEGATIVE); Phencyclidine Screen, Urine Neg (NEGATIVE)
[2023-03-28 11:29] LABS: Cannabinoid Screen, Urine Neg (NEGATIVE)
[2023-03-28] MEDS ORDERED: hydrOXYzine 25 MG TAB or CAP PO PRN (14:15)
[2023-03-28 16:31] LABS: Urine Bacteria MANY /hpf (None Seen); Urine Blood TRACE /uL (Negative); Urine Clarity HAZY (Clear); Urine Color Yellow (Yellow); Urine Hyaline Cast MOD /lpf (0 - 2); Urine Mucus FEW (None Seen); Urine Protein, UAD 1+ (Negative); Urine Specific Gravity 1.022 (1.001-1.035); Urine Urobilinogen Normal (Negative); Urine WBC 62 /hpf (0 - 5); Urine pH 5.5 (5.0-8.0)
[2023-03-28] MEDS ORDERED: NITROFURANTOIN 100 mg CAP PO ONE (17:15)
[2023-03-28] MEDS ORDERED: QUEtiapine FUMARATE 25 MG TAB PO SCH (22:00)
[2023-03-29 07:40] VITALS: PULSE 73; RESP 18; O2SAT 99
[2023-03-29 07:58] LABS: COVID19 ANTIGEN SOFIA FIA NEGATIVE (NEGATIVE)
[2023-03-29] MEDS ORDERED: DOCUSATE SOD 100 MG CAP PO ONE (08:15)
[2023-03-29] MEDS ORDERED: ACETAMINOPHEN 325 MG TAB PO ONE (09:30)
[2023-03-29 10:18] VITALS: BP 110/73; PULSE 82; RESP 16; TEMP 98; O2SAT 97
== END 2023-03-29 10:49 | disposition short-term general hospital (02) ==
LOC: ER 10:42
DX: R45.851 Suicidal ideations (principal); E11.9 Type 2 diabetes mellitus without complications; E03.9 Hypothyroidism, unspecified; F17.210 Nicotine dependence, cigarettes, uncomplicated; Z90.49 Acquired absence of other specified parts of digestive tract; Z20.822 Contact with and (suspected) exposure to COVID-19
CPT/HCPCS: 36415; 80307; 81001; 87426; 96372; 99285; J1885

== ENCOUNTER 2023-12-29 14:20 | Emergency (ER) | payer MEDICAID ==
[~2023-12-29] VITALS: Ht 157.5 cm; Wt 93.0 kg
[2023-12-29 14:38] VITALS: BP 102/54; PULSE 65; RESP 20; O2SAT 95
[2023-12-29 15:39] LABS: Basophils # (auto) 0 10 ^3/uL (0-0.2); Basophils % (auto) 0.7 % (0.0-2.0); Eosinophils # (auto) 0.2 10 ^3/uL (0-0.8); Eosinophils % (auto) 2.6 % (0.0-7.0); Hematocrit 40.4 % (36.0-46.0); Hemoglobin 13.3 g/dL (12.2-16.2); Lymphocytes # (auto) 2.4 10 ^3/uL (0.4-5.4); Lymphocytes % (auto) 36.5 % (10.0-50.0); Mean Corpuscular Volume 93.8 fL (80.0-100.0); Monocytes # (auto) 0.4 10 ^3/uL (0-1.3); Monocytes % (auto) 5.9 % (0.0-12.0); Neutrophils # (auto) 3.5 10 ^3/uL (1.6-8.6); Neutrophils % (auto) 54.3 % (37.0-80.0); Nucleated Red Blood Cells % 0.1 %; Platelet Count (auto) 314 10^3/uL (140-450); Red Cell Distribution Width 13.9 % (11.8-14.3); White Blood Cell 6.5 10^3/uL (4.4-10.8)
[2023-12-29 15:40] LABS: Alanine Aminotransferase 15 U/L (7-40); Albumin 4.3 g/dL (3.2-4.8); Alkaline Phosphatase 125 U/L (46-116); Anion Gap 8 (5-15); Aspartate Aminotransferase 16 U/L (13-40); BUN/Creatinine Ratio 14.3 (10.0-20.0); Bilirubin, Total 0.2 mg/dL (0.2-1.0); Blood Urea Nitrogen 10 mg/dL (9-23); Calcium 9.4 mg/dL (8.7-10.4); Carbon Dioxide 22 mmol/L (20-31); Chloride 107 mmol/L (98-107); Glucose 112 mg/dL (74-106); Potassium 4.4 mmol/L (3.5-5.1); Sodium 137 mmol/L (136-145); Total Protein 7.5 g/dL (5.7-8.2)
[2023-12-29] MEDS: KETOROLAC TROMETH 60MG/2ML VIAL IM ONE (15:50)
[2023-12-29 16:39] LABS: Urine Bacteria FEW /hpf (None Seen); Urine Blood Negative /uL (Negative); Urine Clarity Clear (Clear); Urine Color Colorless (Yellow); Urine Protein, UAD Negative (Negative); Urine Specific Gravity 1.006 (1.001-1.035); Urine Urobilinogen Normal (Negative); Urine WBC 7 /hpf (0 - 5); Urine pH 6.5 (5.0-9.0)
[2023-12-29] MEDS ORDERED: METH-1182 PO (16:53)
[2023-12-29] MEDS ORDERED: CIPR-173 PO (16:53)
[2023-12-29] MEDS ORDERED: IBUP-1456 PO (16:53)
== END 2023-12-29 17:01 | disposition home or self-care (01) ==
LOC: ER 14:20
DX: S39.012A Strain of muscle, fascia and tendon of lower back, initial encounter (principal); N39.0 Urinary tract infection, site not specified; E11.9 Type 2 diabetes mellitus without complications; F17.210 Nicotine dependence, cigarettes, uncomplicated; Z79.899 Other long term (current) drug therapy; Z88.5 Allergy status to narcotic agent; Z90.49 Acquired absence of other specified parts of digestive tract; Z98.51 Tubal ligation status; Z91.013 Allergy to seafood; X58.XXXA Exposure to other specified factors, initial encounter; Y93.89 Activity, other specified; Y92.89 Other specified places as the place of occurrence of the external cause; Y99.8 Other external cause status
CPT/HCPCS: 36415; 74176; 80053; 81001; 85025; 96372; 99285; J1885

== ENCOUNTER 2024-02-08 08:41 | Emergency (ER) | payer MEDICAID ==
[~2024-02-08] VITALS: Ht 157.5 cm; Wt 94.7 kg
[~2024-02-08 08:41] MED LIST changes: +CIPR-173 PO; +METH-1182 PO
[2024-02-08 09:14] VITALS: BP 119/59; PULSE 99; RESP 19; TEMP 98.9; O2SAT 99
[2024-02-08] MEDS ORDERED: LIDO2SOL26 MT (09:24)
[2024-02-08] MEDS ORDERED: AZIT500T66 PO (09:24)
--- NOTE | 2024-02-08 09:29 | ED.PDOC ---
Eye-HPI HPI Comments A 53 YEAR OLD FEMALE PRESENTS TO THE ED WITH COMPLAINT OF SORE THROAT. PATIENT REPORTS THAT SHE HAS BEEN EXPERIENCING A SORE THROAT WITH ASSOCIATED CHILLS AND BODY ACHES FOR THE PAST 3 DAYS. PATIENT DENIES FEVER, EAR PAIN, SHORTNESS OF BREATH, CHEST PAIN, ABDOMINAL PAIN, NAUSEA, VOMITING, HEADACHE, OR OTHER COMPLAINTS. NO OTHER SYMPTOMS OR MODIFYING FACTORS AT THIS TIME. Chief Complaint: Sore Throat Time Seen by MD: 09:23 Primary Care Provider: BERRY Reviewed Notes: Nurses Notes, Medications, Allergies Allergies: Coded Allergies: Codeine (Verified Allergy, Unknown, 03/27/23) Shellfish Allergy (Verified Allergy, Unknown, 03/27/23) Home Meds Active Scripts Lidocaine HCl (Mouth-Throat) (Lidocaine HCl Viscous) 2 % Radha, 10 % MT TID, #100 ML Prov:NATALIIA GUERRERO 02/08/24 Ibuprofen (Ibuprofen) 800 Mg Tab, 1 TAB PO TID, #20 TAB Prov:NATALIIA GUERRERO 02/08/24 Azithromycin (Azithromycin) 500 Mg Tab, 1 TAB PO DAILY, #5 TAB Prov:NATALIIA GUERRERO 02/08/24 Ciprofloxacin Hcl (Cipro) 500 Mg Tab, 1 TAB PO BID, #14 TAB Prov:NATALIIA GUERRERO 12/29/23 Methocarbamol (Methocarbamol) 750 Mg Tab, 750 MG PO BID, #20 TAB Prov:NATALIIA GUERRERO 12/29/23 Ibuprofen (Ibuprofen) 800 Mg Tab, 1 TAB PO TID, #30 TAB Prov:NATALIIA GUERRERO 12/29/23 Docusate Sodium (Colace) 100 Mg Cap, 1 CAP PO BID, #60 CAP 2 Refills Prov:NICOLE ERAZO MD 08/28/21 Levofloxacin (Levaquin) 500 Mg Tab, 500 MG PO DAILY, #7 TAB Prov:NICOLE ERAZO MD 08/28/21 Ondansetron (Zofran) 4 Mg Tab, 4 MG PO QIDPRN, #20 MG Prov:NICOLE ERAZO MD 08/28/21 Reported Medications Acetaminophen W/ Codeine (Codeine Phosphate/Acetami) 1 Tab Tab, 1 TAB PO Q6HP PRN for BREAKTHROUGH PAIN, TAB 03/15/15 Ibuprofen (Ibuprofen) 800 Mg Tab, 1 TAB PO TID, #90 TAB 1 Refill 03/15/15 Buspirone Hcl (Buspar) 10 Mg Tab, 5 MG PO TID, #90 TAB 01/24/15 Citalopram Hydrobromide (CeleXA TABLET) 20 Mg Tb, 20 MG PO DAILY, #30 01/24/15 Sucralfate (Carafate) 1 Gm Tb, 1 GM PO DAILY 01/23/15 Information Source: Patient Mode of Arrival: Ambulatory Timing: Days Duration: Since onset Prehospital treatment: None Quality: Pain Lids: Normal Conjunctiva: Normal Cornea: Normal Pupils: Normal EOM: Normal Fundus: Normal Anterior chamber: Normal Mouth Location: Pharynx Mouth: Normal ENT Ear Exam: Normal, Normal Nose: Normal Sinuses: Normal Oropharynx: Tonsillar hypertrophy, Red Onset: Spontaneous Throat Exposed to: None History of: None Last Tetanus: Unknown Associated signs and symptoms: Sore Throat Past Medical History PAST MEDICAL HISTORY: Anxiety, Depression, DM, Thyroid Surgical History: BTL, Cholecystectomy DIRECTOR PUBLIC POLICY History: No Pertinent DIRECTOR PUBLIC POLICY History Family History Family History: Reviewed,noncontributory to illness, Family hx of heart ashlie Social History Smoker: Cigarettes Alcohol: Occasionally Drugs: Denies Drug Use Lives In: Home Constitutional: reports: chills, malaise; denies: diaphoresis, fatigue, fever, sweats, weakness, others EENTM: reports: nose congestion, throat pain, throat swelling; denies: blurred vision, double vision, ear bleeding, ear discharge, ear drainage, ear pain, ear ringing, eye pain, eye redness, hearing loss, mouth pain, mouth swelling, nasal discharge, nose bleeding, nose pain, photophobia, tearing, voice changes, others Respiratory: denies: cough, hemoptysis, orthopnea, SOB at rest, shortness of breath, SOB with excertion, stridor, wheezing, others Cardiovascular: denies: chest pain, dizzy spells, diaphoresis, Dyspnea on exertion, edema, irregular heart beat, left arm pain, lightheadedness, palpitations, PND, syncope, others Gastrointestinal: denies: abdomen distended, abdominal pain, blood streaked bowels, constipated, diarrhea, dysphagia, difficulty swallowing, hematemesis, melena, nausea, poor appetite, poor fluid intake, rectal bleeding, rectal pain, vomiting, others Genitourinary: denies: abnormal vagina bleeding, burning, dyspareunia, dysuria, flank pain, frequency, hematuria, incontinence, pain, , vagina disch arge, urgency, others Neurological: denies: dizziness, fainting, headache, left sided numbness, left sided weakness, numbness, paresthesia, pre-existing deficit, right sided numbness, right sided weakness, seizure, speech problems, tingling, tremors, weakness, others Musculoskeletal: denies: back pain, gout, joint pain, joint swelling, muscle pain, muscle stiffness, neck pain, others Integumetry: denies: bruises, change in color, change in hair/nails, dryness, laceration, lesions, lumps, rash, wounds, others Allergic/Immunocompromised: denies: Difficulty Healing, Frequent Infections, Hives, Itching, others Hematologic/Lymphatic: denies: anemia, blood clots, easy bleeding, easy bruising, swollen glands, others Endocrine: denies: excessive hunger, excessive sweating, excessive thirst, excessive urination, flushing, intolerance to cold, intolerance to heat, unexplained weight gain, unexplained weight loss, others Psychiatric: denies: anxiety, bipolar disorder, depression, hopeless, panic disorder, schizophrenia, sleepless, suicidal, others All Other Systems: Reviewed and Negative Physical Exam General Appearance: No Apparent Distress, Obese HEENT: PERRL/EOMI, Pharynx Normal (TONSILLAR SWELLING, NO EXUDATES AND BLOOD SPOTS. ) Neck: Full Range of Motion, Non-Tender, Normal, Normal Inspection Respiratory: Chest Non-Tender, Lungs Clear, No Accessory Muscle Use, No Respiratory Distress, Normal Breath Sounds Cardiovascular: No Edema, No JVD, No Murmur, No Gallop, Normal Peripheral Pulses, Regular Rate/Rhythm Breast Exam: Deferred Gastrointestinal: No Organomegaly, Non Tender, No Pulsatile Mass, Normal Bowel Sounds, Soft Genitalia: Deferred Pelvic: Deferred Rectal: Deferred Extremities: No calf tenderness, Normal capillary refill, Normal inspection, Normal range of motion, Non-tender, No pedal edema Musculoskeletal : Apperance: Normal Neurologic: Alert, slide forming machine tender II-XII nml as Tested, No Motor Deficits, Normal Affect, Normal Mood, No Sensory Deficits Cerebellar Function: Normal Reflexes: Normal Skin: Dry, Normal Color, Warm Peripheral Pulses: 2+ carotid (R), 2+ carotid (L) Lymphatic: No Adenopathy Was a procedure done? Was a procedure done?: No EENT DIFF Eye: N/A Ear: N/A Nose: N/A Mouth: N/A Sore Throat: Pharyngitis, Streptococcal, Viral Pharyngitis, Other (TONSILLITIS) X-Ray, Labs, Meds, VS Vital Signs Date Time Temp Pulse Resp B/P (MAP) Pulse Ox O2 Delivery O2 Flow Rate FiO2 02/08/24 09:14 99 19 99 Room Air 02/08/24 09:14 98.9 99 19 119/59 (79) 99 98.9 02/08/24 08:52 99.1 95 19 123/77 (92) 92 Time of 1ST Reevaluation: 09:30 Reevaluation 1ST: Improved Patient Education/Counseling: Diagnosis, Treatment, Need For Follow Up Family Education/Counseling: Diagnosis, Treatment, Need For Follow Up, No Family Present Medical Screening: No EMC Exist At This Time Departure 1 Departure Time of Disposition: 09:40 Impression: Primary Impression: Acute tonsillitis Qualified Codes: J03.90 - Acute tonsillitis, unspecified Disposition: HOME / SELF CARE / HOMELESS Condition: Stable Additional Instructions: FOLLOW-UP WITH PCP IN 1 TO 2 DAYS. TAKE MEDICATIONS PRESCRIBED. RETURN TO ED FOR ANY NEW OR WORSENING SYMPTOMS. e-Prescriptions Promethazine-Dm (Promethazine Dm 6.25-15 mg/5Ml) 1 Radha Radha 5 ML PO TID, #150 ML Prov: NATALIIA GUERRERO 02/08/24 Lidocaine HCl (Mouth-Throat) (Lidocaine HCl Viscous) 2 % Radha 10 % MT TID, #100 ML Prov: NATALIIA GUERRERO 02/08/24 Azithromycin (Azithromycin) 500 Mg Tab 1 TAB PO DAILY, #5 TAB Prov: NATALIIA GUERRERO 02/08/24 Discharged With: Self Critical Care Note Critical Care Time?: No Stability Stability form required: No Heart Score Heart Score: Heart Score Response (Comments) Value History N/A 0 EKG N/A 0 Age N/A 0 Risk Factors N/A 0 Troponin N/A 0 Total 0 I personally scribed for NATALIIA GUERRERO ([email or web address]) on 02/08/24 at 09:29. Electronically submitted by Ken Shah ([email or web address]). NATALIIA GUERRERO Feb 08, 2024 09:29
[2024-02-08] MEDS ORDERED: PROM1SOL4 PO (09:37)
== END 2024-02-08 09:39 | disposition home or self-care (01) ==
LOC: ER 08:41
DX: J03.90 Acute tonsillitis, unspecified (principal); E11.9 Type 2 diabetes mellitus without complications; F17.210 Nicotine dependence, cigarettes, uncomplicated; F32.A Depression, unspecified; F41.9 Anxiety disorder, unspecified; Z79.1 Long term (current) use of non-steroidal anti-inflammatories (NSAID); Z79.899 Other long term (current) drug therapy; Z88.5 Allergy status to narcotic agent; Z90.49 Acquired absence of other specified parts of digestive tract; Z98.51 Tubal ligation status; Z91.013 Allergy to seafood

== ENCOUNTER 2024-03-08 08:52 | Emergency (ER) | payer MEDICAID ==
[~2024-03-08] VITALS: Ht 157.5 cm; Wt 94.0 kg
[~2024-03-08 08:52] MED LIST changes: +AZIT500T66 PO; +LIDO2SOL26 MT; +PROM1SOL4 PO
[2024-03-08 09:44] VITALS: BP 135/79; PULSE 71; RESP 18; TEMP 98; O2SAT 96
--- NOTE | 2024-03-08 09:58 | ED.PDOC ---
Musculoskeletal HPI Comments A 53 YEAR OLD FEMALE PRESENTS TO THE ED WITH COMPLAINT OF RIGHT ANKLE PAIN AND SWELLING. PATIENT STATES SHE HAS BEEN EXPERIENCING RIGHT ANKLE PAIN WITH SWELLING FOR THE PAST 2 DAYS. PATIENT NOTES HER RIGHT ANKLE IS WARM TO THE TOUCH. PATIENT DENIES INJURY TO THE AFFECTED AREA, FEVER, CHILLS, SHORTNESS OF BREATH, CHEST PAIN, ABDOMINAL PAIN, NAUSEA, VOMITING, HEADACHE, OR OTHER COMPLAINTS. NO OTHER SYMPTOMS OR MODIFYING FACTORS AT THIS TIME. PATIENT IS ALERT, ORIENTED X 4, AND HAS STEADY GAIT. Chief Complaint: Lower Extremity Time Seen by MD: 09:10 Primary Care Provider: BERRY Reviewed Notes: Nurses Notes, Medications, Allergies Allergies: Coded Allergies: Codeine (Verified Allergy, Unknown, 03/27/23) Shellfish Allergy (Verified Allergy, Unknown, 03/27/23) Home Meds Active Scripts Promethazine-Dm (Promethazine Dm 6.25-15 mg/5Ml) 1 Radha Radha, 5 ML PO TID, #150 ML Prov:NATALIIA GUERRERO 02/08/24 Lidocaine HCl (Mouth-Throat) (Lidocaine HCl Viscous) 2 % Radha, 10 % MT TID, #100 ML Prov:NATALIIA GUERRERO 02/08/24 Azithromycin (Azithromycin) 500 Mg Tab, 1 TAB PO DAILY, #5 TAB Prov:NATALIIA GUERRERO 02/08/24 Ciprofloxacin Hcl (Cipro) 500 Mg Tab, 1 TAB PO BID, #14 TAB Prov:NATALIIA GUERRERO 12/29/23 Methocarbamol (Methocarbamol) 750 Mg Tab, 750 MG PO BID, #20 TAB Prov:NATALIIA GUERRERO 12/29/23 Ibuprofen (Ibuprofen) 800 Mg Tab, 1 TAB PO TID, #30 TAB Prov:NATALIIA GUERRERO 12/29/23 Docusate Sodium (Colace) 100 Mg Cap, 1 CAP PO BID, #60 CAP 2 Refills Prov:NICOLE ERAZO MD 08/28/21 Levofloxacin (Levaquin) 500 Mg Tab, 500 MG PO DAILY, #7 TAB Prov:NICOLE ERAZO MD 08/28/21 Ondansetron (Zofran) 4 Mg Tab, 4 MG PO QIDPRN, #20 MG Prov:NICOLE ERAZO MD 08/28/21 Reported Medications Acetaminophen W/ Codeine (Codeine Phosphate/Acetami) 1 Tab Tab, 1 TAB PO Q6HP TN N for BREAKTHROUGH PAIN, TAB 03/15/15 Ibuprofen (Ibuprofen) 800 Mg Tab, 1 TAB PO TID, #90 TAB 1 Refill 03/15/15 Buspirone Hcl (Buspar) 10 Mg Tab, 5 MG PO TID, #90 TAB 01/24/15 Citalopram Hydrobromide (CeleXA TABLET) 20 Mg Tb, 20 MG PO DAILY, #30 01/24/15 Sucralfate (Carafate) 1 Gm Tb, 1 GM PO DAILY 01/23/15 Information Source: Patient Mode of Arrival: Ambulatory Location: Right Extremity Location: Ankle Timing: Days Prehospital treatment: None Severity: Moderate Able to Move Extremity: Yes Bear Weight: Fully Pain: Moderate Mechanism: No Trauma, Spontaneous Circumstances: Spontaneous Onset of Symptoms: Spontaneous Symptoms: Swelling, Pain, Warmth DVT Risk Factors: NONE Last Tetanus: Unknown Associated signs and symptoms: Swelling, Ankle pain Past Medical History PAST MEDICAL HISTORY: Anxiety, Depression, DM, Thyroid Surgical History: BTL, Cholecystectomy 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 Pertinent CHIROPRACTIC TEACHER History Family History Family History: Reviewed,noncontributory to illness, Family hx of heart ashlie Social History Smoker: Cigarettes Alcohol: Occasionally Drugs: Denies Drug Use Lives In: Home Constitutional: denies: chills, diaphoresis, fatigue, fever, malaise, sweats, weakness, others EENTM: denies: blurred vision, double vision, ear bleeding, ear discharge, ear drainage, ear pain, ear ringing, eye pain, eye redness, hearing loss, mouth pain, mouth swelling, nasal discharge, nose bleeding, nose congestion, nose pain, photophobia, tearing, throat pain, throat swelling, voice changes, others Respiratory: denies: cough, hemoptysis, orthopnea, SOB at rest, shortness of breath, SOB with excertion, stridor, wheezing, others Cardiovascular: denies: chest pain, dizzy spells, diaphoresis, Dyspnea on exertion, edema, irregular heart beat, left arm pain, lightheadedness, palpitations, PND, syncope, others Gastrointestinal: denies: abdomen distended, abdominal pain, blood streaked bowels, constipated, diarrhea, dysphagia, difficulty swallowing, hematemesis, melena, nausea, poor appetite, poor fluid intake, rectal bleeding, rectal pain, vomiting, others Genitourinary: denies: abnormal vagina bleeding, burning, dyspareunia, dysuria, flank pain, frequency, hematuria, incontinence, pain, , vagina discharge, urgency, others Neurological: denies: dizziness, fainting, headache, left sided numbness, left sided weakness, numbness, paresthesia, pre-existing deficit, right sided numbnes s, right sided weakness, seizure, speech problems, tingling, tremors, weakness, others Musculoskeletal: reports: joint pain, joint swelling, others (RIGHT ANKLE PAIN AND SWELLING); denies: back pain, gout, muscle pain, muscle stiffness, neck pain Integumetry: denies: bruises, change in color, change in hair/nails, dryness, laceration, lesions, lumps, rash, wounds, others Allergic/Immunocompromised: denies: Difficulty Healing, Frequent Infections, Hives, Itching, others Hematologic/Lymphatic: denies: anemia, blood clots, easy bleeding, easy bruising, swollen glands, others Endocrine: denies: excessive hunger, excessive sweating, excessive thirst, excessive urination, flushing, intolerance to cold, intolerance to heat, unexplained weight gain, unexplained weight loss, others Psychiatric: denies: anxiety, bipolar disorder, depression, hopeless, panic disorder, schizophrenia, sleepless, suicidal, others All Other Systems: Reviewed and Negative Physical Exam General Appearance: Mild Distress, Obese, Other (ANXIOUS ) HEENT: Normal ENT Inspection, PERRL/EOMI, Pharynx Normal, TMs Normal Neck: Full Range of Motion, Non-Tender, Normal, Normal Inspection Respiratory: Chest Non-Tender, Lungs Clear, No Accessory Muscle Use, No Respiratory Distress, Normal Breath Sounds Cardiovascular: No Edema, No JVD, No Murmur, No Gallop, Normal Peripheral Pulses, Regular Rate/Rhythm Breast Exam: Deferred Gastrointestinal: No Organomegaly, Non Tender, No Pulsatile Mass, Normal Bowel Sounds, Soft Genitalia: Deferred Pelvic: Deferred Rectal: Deferred Extremities: Decreased range of motion (SLIGHTLY), No calf tenderness, Normal capillary refill, Normal range of motion, No pedal edema, Swelling (TENDERNESS, SWELLING AND HEAT ON RIGHT ANKLE, NO BONY TENDERNESS AND DEFORMITY. ), Tender (AND SWELLING WITH HEAT ON RIGHT ANKLE, GOUT?? 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 Was a procedure done?: No Differential Diagnosis EXT Differential Diagnosis: Sprain, Gout, DJD, Strain, Arthritis, Bursitis X-Ray, Labs, Meds, VS Vital Signs Date Time Temp Pulse Resp B/P (MAP) Pulse Ox O2 Delivery O2 Flow Rate FiO2 03/08/24 09:44 98.0 71 18 135/79 (97) 96 98.0 03/08/24 09:44 71 18 96 Room Air 03/08/24 09:19 98.0 71 18 135/79 (97) 96 Current Medications Medications (Trade) Dose Ordered Sig/Moni Route Start Time Stop Time Status Last Admin Ketorolac Tromethamine (Toradol Injection) 60 mg ONCE ONCE IM 03/08/24 10:15 03/08/24 10:16 DC 03/08/24 10:17 PATIENT: NADIA BEE TACCT: [id number]: [id number] : 1970 LOC: ER ROOM / BED: / AGE / SEX: 53 / F ADM STATUS: REG ER SERVICE 8 ORDERING PHYSICIAN: NATALIIA GUERRERO PROCEDURE(s): RANKL - R ANKLE 3 VIEW REASON: PAIN, NO INJURY ORDER NUMBER(s): [id number], ACCESSION NUMBER(s): [id number] CLINICAL INDICATION: PAIN, NO INJURY TECHNIQUE: 3 radiographic views of the right ankle were obtained. Comparison: None FINDINGS/IMPRESSION: Chronic trimalleolar fracture. Postsurgical changes are visualized in the distal tibia. Soft tissue swelling about the right ankle. ATED BY: GABRIEL WHITMAN MD DICTATED DATE/TIME: 03/08/241014 SIGNED BY: GABRIEL WHITMAN MD SIGNED DATE/TIME: 12/20/24 1015 CC: X-Ray, Labs, Meds, VS Comment EXTERNAL MEDICAL RECORDS REVIEWED: [NONE] INDEPENDENT HISTORIANS: [NONE] SOCIAL DETERMINANTS OF HEALTH: [NONE] LABS ORDERED: NONE REVIEWED AND INTERPRETED RESULTS: NONE IMAGING ORDERED: XR ANKLE RT: [INTERPRETED BY ME. NO ACUTE FINDINGS. NO FRACTURES OR DISLOCATION. DJD NOTED. PENDING RADIOLOGIST REPORT.] TREATMENTS ORDERED: TORADOL 60 MG IM PROCEDURES PERFORMED: NONE CRITICAL CARE TIME: NONE I HAVE DISCUSSED THE PATIENT WITH THE ATTENDING PHYSICIAN DR. PHILLIPS AND HE AGREES WITH THE PATIENT'S PLAN OF CARE AND DISPOSITION. BASED ON HISTORY OF PRESENT ILLNESS, AND PHYSICAL EXAM, PATIENT WILL BE DISCHARGED HOME. DISCUSSED PLAN FOR DISCHARGE HOME WITH RX [INDOCIN AND PREDNISONE]. MEDICATION WARNINGS GIVEN. SHARED DECISION MAKING: PATIENT INSTRUCTED TO FOLLOW UP WITH PRIMARY CARE PROVIDER IN 1-2 DAYS FOR RE-EVALUATION OF SYMPTOMS. PATIENT VERBALIZES UNDERSTAN DING TO RETURN TO ED FOR NEW OR WORSENING SYMPTOMS OR IF FOLLOW UP WITH PCP CANNOT BE OBTAINED. PATIENT FEELS COMFORTABLE GOING HOME AT THIS TIME. ALL QUESTIONS ADDRESSED AT TIME OF DISCHARGE. Images Reviewed?: Images reviewed and evaluated by me Time of 1ST Reevaluation: 10:33 Reevaluation 1ST: Improved Patient Education/Counseling: Diagnosis, Treatment, Need For Follow Up Family Education/Counseling: Diagnosis, Treatment, Need For Follow Up Medical Screening: No EMC Exist At This Time Departure 1 Departure Time of Disposition: 10:33 Impression: Primary Impression: Gout of right ankle Qualified Codes: M10.9 - Gout, unspecified Disposition: HOME / SELF CARE / HOMELESS Condition: Stable Additional Instructions: FOLLOW-UP WITH PCP IN 1 TO 2 DAYS. TAKE MEDICATIONS PRESCRIBED. RETURN TO ED FOR ANY NEW OR WORSENING SYMPTOMS. e-Prescriptions Methylprednisolone (Medrol Dosepak) 4 Mg Asif 4 MG PO UD, #21 TAB UAD Prov: NATALIIA GUERRERO 03/08/24 Indomethacin (Indomethacin) 50 Mg Cap 1 CAP PO TID, #30 CAP Prov: NATALIIA GUERRERO 03/08/24 Discharged With: Self, Relative Critical Care Note Critical Care Time?: No Stability Stability form required: No I personally scribed for NATALIIA GUERRERO ([email or web address]) on 03/08/24 at 09:58. Electronically submitted by Joseph Villafuerte ([email or web address]). I personally scribed for NATALIIA GUERRERO ([email or web address]) on 03/08/24 at 10:17. Electronically submitted by Joseph Villafuerte ([email or web address]). NATALIIA GUERRERO Mar 08, 2024 09:58
--- NOTE | 2024-03-08 10:16 | DVH ---
CLINICAL INDICATION: PAIN, NO INJURY TECHNIQUE: 3 radiographic views of the right ankle were obtained. Comparison: None FINDINGS/IMPRESSION: Chronic trimalleolar fracture. Postsurgical changes are visualized in the distal tibia. Soft tissue swelling about the right ankle.
[2024-03-08] MEDS: KETOROLAC TROMETH 60MG/2ML VIAL IM ONE (10:17)
[2024-03-08] MEDS ORDERED: METH4PAK PO (10:33)
[2024-03-08] MEDS ORDERED: INDO50CA82 PO (10:33)
== END 2024-03-08 10:51 | disposition home or self-care (01) ==
LOC: ER 08:52
DX: M10.9 Gout, unspecified (principal); E11.9 Type 2 diabetes mellitus without complications; F41.9 Anxiety disorder, unspecified; F32.9 Major depressive disorder, single episode, unspecified; F17.210 Nicotine dependence, cigarettes, uncomplicated; Z90.49 Acquired absence of other specified parts of digestive tract; Z98.890 Other specified postprocedural states; Z88.5 Allergy status to narcotic agent; Z79.1 Long term (current) use of non-steroidal anti-inflammatories (NSAID); Z79.899 Other long term (current) drug therapy; Z91.013 Allergy to seafood
CPT/HCPCS: 73610; 96372; 99283; J1885

== ENCOUNTER 2024-04-28 15:04 | Emergency (ER) | payer MEDICAID ==
[~2024-04-28] VITALS: Ht 157.5 cm; Wt 74.0 kg
[~2024-04-28 15:04] MED LIST changes: +INDO50CA82 PO; +METH4PAK PO
[2024-04-28 15:10] VITALS: BP 109/51; PULSE 73; RESP 18; O2SAT 98
--- NOTE | 2024-04-28 15:58 | ED.PDOC ---
History of Present Illness HPI Comments near syncope Comments pt was at [employer], when witnesses report pt sat down on the floor and appeared altered. they called 911. pt reports she fainted. paramedics report pt's BS was 240, she smelled of alcohol. chart review shows pt has a history of SI, gout, low back pain, atypical chest pain Time Seen by MD: 15:13 Primary Care Provider: BERRY Reviewed Notes: Nurses Notes, Septic Tank Installer Notes, Medications, Allergies Allergies: Coded Allergies: Codeine (Verified Allergy, Unknown, 03/27/23) Shellfish Allergy (Verified Allergy, Unknown, 03/27/23) Home Meds Active Scripts Methylprednisolone (Medrol Dosepak) 4 Mg Asif, 4 MG PO UD, #21 TAB UAD Prov:NATALIIA GUERRERO 03/08/24 Indomethacin (Indomethacin) 50 Mg Cap, 1 CAP PO TID, #30 CAP Prov:NATALIIA GUERRERO 03/08/24 Promethazine-Dm (Promethazine Dm 6.25-15 mg/5Ml) 1 Radha Radha, 5 ML PO TID, #150 ML Prov:NATALIIA GUERRERO 02/08/24 Lidocaine HCl (Mouth-Throat) (Lidocaine HCl Viscous) 2 % Radha, 10 % MT TID, #100 ML Prov:NATALIIA GUERRERO 02/08/24 Azithromycin (Azithromycin) 500 Mg Tab, 1 TAB PO DAILY, #5 TAB Prov:NATALIIA GUERRERO 02/08/24 Ciprofloxacin Hcl (Cipro) 500 Mg Tab, 1 TAB PO BID, #14 TAB Prov:NATALIIA GUERRERO 12/29/23 Methocarbamol (Methocarbamol) 750 Mg Tab, 750 MG PO BID, #20 TAB Prov:NATALIIA GUERRERO 12/29/23 Ibuprofen (Ibuprofen) 800 Mg Tab, 1 TAB PO TID, #30 TAB Prov:NATALIIA GUERRERO 12/29/23 Docusate Sodium (Colace) 100 Mg Cap, 1 CAP PO BID, #60 CAP 2 Refills Prov:NICOLE ERAZO MD 08/28/21 Levofloxacin (Levaquin) 500 Mg Tab, 500 MG PO DAILY, #7 TAB Prov:NICOLE ERAZO MD 08/28/21 Ondansetron (Zofran) 4 Mg Tab, 4 MG PO QIDPRN, #20 MG Prov:NICOLE ERAZO MD 08/28/21 Reported Medications Acetaminophen W/ Codeine (Codeine Phosphate/Acetami) 1 Tab Tab, 1 TAB PO Q6HP PRN for BREAKTHROUGH PAIN, TAB 03/15/15 Ibuprofen (Ibuprofen) 800 Mg Tab, 1 TAB PO TID, #90 TAB 1 Refill 03/15/15 Buspirone Hcl (Buspar) 10 Mg Tab, 5 MG PO TID, #90 TAB 01/24/15 Citalopram Hydrobromide (CeleXA TABLET) 20 Mg Tb, 20 MG PO DAILY, #30 01/24/15 Sucralfate (Carafate) 1 Gm Tb, 1 GM PO DAILY 01/23/15 Information Source: Patient, Emergency Med Personnel Mode of Arrival: EMS Severity: Mild Timing: Minutes Duration: Intermittent Prehospital treatment: None Past Medical History PAST MEDICAL HISTORY: Anxiety, Depression, DM, Thyroid Surgical History: BTL, Cholecystectomy [employer]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 Family History Family History: Reviewed,noncontributory to illness, Family hx of heart ashlie Social History Smoker: Cigarettes Alcohol: Occasionally Drugs: Denies Drug Use Lives In: Home Constitutional: denies: chills, diaphoresis, fatigue, fever, malaise, sweats, weakness, others EENTM: denies: blurred vision, double vision, ear bleeding, ear discharge, ear drainage, ear pain, ear ringing, eye pain, eye redness, hearing loss, mouth pain, mouth swelling, nasal discharge, nose bleeding, nose congestion, nose pain, photophobia, tearing, throat pain, throat swelling, voice changes, others Respiratory: denies: cough, hemoptysis, orthopnea, SOB at rest, shortness of breath, SOB with excertion, stridor, wheezing, others Cardiovascular: denies: chest pain, dizzy spells, diaphoresis, Dyspnea on exertion, edema, irregular heart beat, left arm pain, lightheadedness, palpitations, PND, syncope, others Gastrointestinal: denies: abdomen distended, abdominal pain, blood streaked bowels, constipated, diarrhea, dysphagia, difficulty swallowing, hematemesis, melena, nausea, poor appetite, poor fluid intake, rectal bleeding, rectal pain, vomiting, others Genitourinary: denies: abnormal vagina bleeding, burning, dyspareunia, dysuria, flank pain, frequency, hematuria, incontinence, pain, , vagina discharge, urgency, others Neurological: denies: dizziness, fainting, headache, left sided numbness, left sided weakness, numbness, paresthesia, pre-existing deficit, right sided numbness, right sided weakness, seizure, speech problems, tingling, tremors, weakness, others Musculoskeletal: denies: back pain, gout, joint pain, joint swelling, muscle pain, muscle stiffness, neck pain, others Integumetry: denies: bruises, change in color, change in hair/nails, dryness, laceration, lesions, lumps, rash, wounds, others Allergic/Immunocompromised: denies: Difficulty Healing, Frequent Infections, Hives, Itching, others Hematologic/Lymphatic: denies: anemia, blood clots, easy bleeding, easy bruising, swollen glands, others Endocrine: denies: excessive hunger, excessive sweating, excessive thirst, excessive urination, flushing, intolerance to cold, intolerance to heat, unexplained weight gain, unexplained weight loss, others Psychiatric: denies: anxiety, bipolar disorder, depression, hopeless, panic disorder, schizophrenia, sleepless, suicidal, others All Other Systems: Reviewed and Negative Physical Exam General Appearance: No Apparent Distress, Normal, Other (smells of etoh) HEENT: Normal ENT Inspection, Pharynx Normal, TMs Normal Neck: Full Range of Motion, Non-Tender, Normal, Normal Inspection Respiratory: Chest Non-Tender, Lungs Clear, No Accessory Muscle Use, No Respiratory Distress, Normal Breath Sounds Cardiovascular: No Edema, No JVD, No Murmur, No Gallop, Normal Peripheral Pulses, Regular Rate/Rhythm Breast Exam: Deferred Gastrointestinal: No Organomegaly, Non Tender, No Pulsatile Mass, Normal Bowel Sounds, Soft Genitalia: Deferred Pelvic: Deferred Rectal: Deferred Extremities: No calf tenderness, Normal capillary refill, Normal inspection, Normal range of motion, Non-tender, No pedal edema Musculoskeletal : Apperance: Normal Neurologic: Alert, 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 Was a procedure done?: No Differential Dx Considerations may include: hypoglycemia, dka, dehydration, alcohol intoxication, substance abuse, arrhythmia, acs, tia, hypotension, seizure, vasovagal reaction X-Ray, Labs, Meds, VS Vital Signs Date Time Temp Pulse Resp B/P (MAP) Pulse Ox O2 Delivery O2 Flow Rate FiO2 04/28/24 15:10 98.1 73 18 109/51 (70) 98 Lab Test 04/28/24 17:28 04/28/24 16:15 04/28/24 16:02 Range/Units Troponin I High Sensitivity Pending Urine Color Colorless Yellow Urine Clarity Clear Clear Urine pH 5.5 5.0-9.0 Urine Specific [place] 1.006 1.001-1.035 Urine Protein Negative Negative Urine Ketones Negative Negative Urine Blood Negative Negative /uL Urine Nitrite Negative Negative Urine Bilirubin Negative Negative Urine Urobilinogen Normal Negative mg/dL Urine Leukocyte Esterase Negative Negative /uL Urine RBC <1 0 - 4 /hpf Urine Microscopic WBC < 1 0-5 /HPF Urine Squamous Epithelial Cells None seen <5 /hpf Urine Bacteria Few H None Seen /hpf Urine Glucose Normal Normal mg/dL Urine Test Negative Negative Urine Opiates Screen Neg NEGATIVE Urine Fentanyl Screen Neg NEGATIVE Urine Barbiturates Screen Neg NEGATIVE Urine Phencyclidine Screen Neg NEGATIVE Urine Amphetamines Screen Neg NEGATIVE Urine Benzodiazepines Screen Neg NEGATIVE Urine Cocaine Screen Neg NEGATIVE Urine Cannabinoids Screen Neg NEGATIVE White Blood Count 9.0 4.4-10.8 10^3/uL Red Blood Count 4.11 4.0-5.20 10^6/uL Hemoglobin 12.4 12.2-16.2 g/dL Hematocrit 38.3 36.0-46.0 % Mean Corpuscular Volume 93.2 80.0-100.0 fL Mean Corpuscular Hemoglobin 30.1 28.0-32.0 pg Mean Corpuscular Hemoglobin Concent 32.3 32.0-36.0 g/dL Red Cell Distribution Width 14.3 11.8-14.3 % Platelet Count 227 140-450 10^3/uL Mean Platelet Volume 9.4 6.9-10.8 fL Neutrophils (%) (Auto) 44.1 37.0-80.0 % Lymphocytes (%) (Auto) 46.3 10.0-50.0 % Monocytes (%) (Auto) 6.9 0.0-12.0 % Eosinophils (%) (Auto) 1.9 0.0-7.0 % Basophils (%) (Auto) 0.8 0.0-2.0 % Neutrophils # (Auto) 4.0 1.6-8.6 10 ^3/uL Lymphocytes # (Auto) 4.2 0.4-5.4 10 ^3/uL Monocytes # (Auto) 0.6 0-1.3 10 ^3/uL Eosinophils # (Auto) 0.2 0-0.8 10 ^3/uL Basophils # (Auto) 0.1 0-0.2 10 ^3/uL Nucleated Red Blood Cells 0.1 % Sodium Level 135 L 136-145 mmol/L Potassium Level 3.9 3.5-5.1 mmol/L Chloride Level 103 98-107 mmol/L Carbon Dioxide Level 22 20-31 mmol/L Anion Gap 10 5-15 Blood Urea Nitrogen 9 9-23 mg/dL Creatinine 0.77 0.550-1.02 mg/dL Glomerular Filtration Rate Calc 91 >90 mL/min BUN/Creatinine Ratio 11.7 10.0-20.0 Serum Glucose 110 H 74-106 mg/dL Calcium Level 9.3 8.7-10.4 mg/dL Plasma/Serum Blood Alcohol 191.9 H <10 mg/dL Time of 1ST Reevaluation: 17:36 Reevaluation 1ST: Improved Patient Education/Counseling: Diagnosis, Treatment, Prognosis, Need For Follow Up Family Education/Counseling: Diagnosis, Treatment, Prognosis, Need For Follow Up Additional Information pt is now alert, awake and admitted that she has been drinking, but states that she did not drive. she had lyft take her and is now calling her son to pick her up. she reports that she plans to quit and will look for a program Departure 1 Departure Time of Disposition: 17:44 Impression: Primary Impression: Near syncope Additional Impression: Acute alcohol intoxication Qualified Codes: F10.920 - Alcohol use, unspecified with intoxication, uncomplicated Disposition: 01 HOME / SELF CARE / HOMELESS Condition: Good Discharged With: Self, Relative Critical Care Note Critical Care Time?: Yes (55 min-critical care time only) Critical care comment: Due to the possibility of patient's condition deteriorating, the patient required my highest attention and readiness to intervene. i assessed the patient, reviewed his records, ordered the proper tests and treatments. i communicated with medical personnel, reassessed the patient for response to treatments. i formulated a care plan and provided the critical care that excluded any procedures Stability Stability form required: ANEESH Anne MD Apr 28, 2024 15:58
[2024-04-28 16:21] LABS: Chloride 103 mmol/L (98-107); Potassium 3.9 mmol/L (3.5-5.1)
[2024-04-28 16:22] LABS: Anion Gap 10 (5-15); Carbon Dioxide 22 mmol/L (20-31)
[2024-04-28 16:23] LABS: Basophils # (auto) 0.1 10 ^3/uL (0-0.2); Basophils % (auto) 0.8 % (0.0-2.0); Calcium 9.3 mg/dL (8.7-10.4); Eosinophils # (auto) 0.2 10 ^3/uL (0-0.8); Eosinophils % (auto) 1.9 % (0.0-7.0); Hematocrit 38.3 % (36.0-46.0); Hemoglobin 12.4 g/dL (12.2-16.2); Lymphocytes # (auto) 4.2 10 ^3/uL (0.4-5.4); Lymphocytes % (auto) 46.3 % (10.0-50.0); Mean Corpuscular Hemoglobin 30.1 pg (28.0-32.0); Mean Corpuscular Hgb Conc. 32.3 g/dL (32.0-36.0); Mean Corpuscular Volume 93.2 fL (80.0-100.0); Monocytes # (auto) 0.6 10 ^3/uL (0-1.3); Monocytes % (auto) 6.9 % (0.0-12.0); Neutrophils % (auto) 44.1 % (37.0-80.0); Nucleated Red Blood Cells % 0.1 %; Platelet Count (auto) 227 10^3/uL (140-450); Red Blood Cells 4.11 10^6/uL (4.0-5.20); Red Cell Distribution Width 14.3 % (11.8-14.3)
[2024-04-28 16:25] LABS: Sodium 135 mmol/L (136-145)
[2024-04-28 16:26] LABS: Urine Bacteria FEW /hpf (None Seen); Urine Blood Negative /uL (Negative); Urine Clarity Clear (Clear); Urine Color Colorless (Yellow); Urine Protein, UAD Negative (Negative); Urine Specific Gravity 1.006 (1.001-1.035); Urine Squamous Epithelial Cell None Seen /hpf (<5); Urine Urobilinogen Normal (Negative); Urine WBC < 1 /HPF (0-5); Urine pH 5.5 (5.0-9.0)
[2024-04-28 16:28] LABS: BUN/Creatinine Ratio 11.7 (10.0-20.0); Blood Alcohol 191.9 mg/dL (<10); Blood Urea Nitrogen 9 mg/dL (9-23)
[2024-04-28 16:33] LABS: Glucose 110 mg/dL (74-106)
[2024-04-28 16:45] LABS: Amphetamine Screen, Urine Neg (NEGATIVE); Barbiturate Scree,Urine Neg (NEGATIVE); Benzodiazephine Screen, Urine Neg (NEGATIVE); Cannabinoid Screen, Urine Neg (NEGATIVE); Cocaine Screen, Urine Neg (NEGATIVE); Opiate Scree,Urine Neg (NEGATIVE); Phencyclidine Screen, Urine Neg (NEGATIVE)
== END 2024-04-28 21:45 | disposition home or self-care (01) ==
LOC: EDUNIT# 15:04 → ER 15:04 → EDBD 15:04 → EDSEX 15:04 → ER 21:45
DX: F10.129 Alcohol abuse with intoxication, unspecified (principal); R55 Syncope and collapse; E11.9 Type 2 diabetes mellitus without complications; E03.9 Hypothyroidism, unspecified; F17.210 Nicotine dependence, cigarettes, uncomplicated; Z90.49 Acquired absence of other specified parts of digestive tract; Z88.8 Allergy status to other drugs, medicaments and biological substances; Z79.899 Other long term (current) drug therapy
CPT/HCPCS: 36415; 80048; 80307; 80320; 81001; 81025; 84484; 85025